=== PATIENT | male | born 1985 | race Caucasian/White ===

== ENCOUNTER 2016-11-18 16:09 | Emergency (ER) | payer OTHER ==
[~2016-11-18] VITALS: Ht 175.3 cm; Wt 80.1 kg
[~2016-11-18 16:09] MED LIST: METHADONE HCL40 MG PO; METHADONE10 MG PO; REMERON45 MG PO
[2016-11-18 20:02] LABS: HEMATOCRIT 46.5 % (38.0-50.0); MCH 30.2 PG (29.0-34.0); MCV 88.9 FL (86-99); MEAN PLAT.VOLUME 10.6 uM^3 (9.0-12.4); PLATELET COUNT 216 K/uL (156-360); RBC DIS.WIDTH-CV 12.4 % (11.8-14.6); RBC DIS.WIDTH-SD 40.6 % (39-53); RED BLOOD COUNT 5.23 M/uL (4.00-5.50); WHITE BLOOD COUNT 8.9 K/uL (4.1-10.2)
[2016-11-18 20:19] LABS: CHLORIDE 104 mEq/L (99-109); POTASSIUM 4.5 mEq/L (3.7-5.4); SODIUM 139 mEq/L (136-147)
[2016-11-18 20:21] LABS: GLUCOSE 100 mg/dL (70-99)
[2016-11-18 20:22] LABS: ANION GAP 9 MEQ/L (2-14)
[2016-11-18 20:25] LABS: GFR ESTIMATE (CALCULATED) > 59 mL/min/; UREA NITROGEN (BUN) 12 mg/dL (9-23)
[2016-11-18 20:39] LABS: INTERNAL CONTROL VALID? YES; MONOSPOT (MONONUCLEOSIS SEROL) NEGATIVE
[2016-11-18 21:17] VITALS: BP 155/88
== END 2016-11-18 21:26 | disposition home or self-care (01) ==
LOC: EME 16:09
PROVIDERS: Nurse Practitioner Family
DX: Q18.0 Sinus, fistula and cyst of branchial cleft (principal); R05 Cough; F17.200 Nicotine dependence, unspecified, uncomplicated
CPT/HCPCS: 76536; 80048; 85027; 86308; 99281; 99285